=== PATIENT | female | born 1965 | race Two or more races ===

== ENCOUNTER 2021-06-01 21:21 | Emergency (ER) | payer OTHER ==
[2021-06-01 21:28] VITALS: BP 137/84; PULSE 90; TEMP 97.9; BMI 31.3
[2021-06-01] MEDS ORDERED: ACETAMINOPHEN 325 MG TABLET (FP) PO ONE (23:28)
[2021-06-02] MEDS ORDERED: ACETAMINOPHEN 325 MG TABLET (FP) ONE (00:04)
== END 2021-06-02 01:38 | disposition home or self-care (01) ==
LOC: JERFT 21:21 → JER 21:21
DX: M25.511 Pain in right shoulder (principal)
CPT/HCPCS: 71046-TC-FY; 73030-TC-RT-FY; 99284-25